=== PATIENT | male | born 1945 | race Caucasian/White ===

== ENCOUNTER 2023-02-15 10:08 | Outpatient (REF) | payer MEDICARE, SELFPAY ==
--- NOTE | ~2023-02-15 | XR_ITS ---
EXAMINATION: XR KNEE, LEFT CLINICAL INFORMATION: Pain in left knee COMPARISON: None available. TECHNIQUE: Three views of the left knee. FINDINGS: Patient is status post total knee replacement with patella resurfacing. Prosthesis is well aligned. There is no loosening or fractures seen. There is mild suprapatellar fullness on most likely due to edema less likely joint effusion. XR/XR knee LT 3V IMPRESSION: Well-positioned left knee prosthesis.
== END 2023-02-15 10:09 | disposition home or self-care (01) ==
LOC: HO.HOSX 10:08
PROVIDERS: Visit Provider Orthopaedic Surgery
DX: M25.562 Pain in left knee (principal); Z96.653 Presence of artificial knee joint, bilateral
CPT/HCPCS: 73562; 99212

== ENCOUNTER 2023-02-15 13:44 | Outpatient (AMB) | payer MEDICARE, SELFPAY ==
--- NOTE | 2023-02-15 14:00 | A.OFFVIS_ITS ---
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 Tovar. Hx of bilateral knee replacemant surgeries. He denies any fevers or chills. He states that he did aggravated his left knee several weeks ago when he tripped over a tomato cage while he was walking in the [place]. He denies any other injuries. He does not take any medicines for his discomfort. He denies any locking or giving way. He has been wearing an ankle weight on his left ankle to increases his strength. Allergies Tetanus Vaccines and Toxoid [TETANUS] Allergy (Unknown, Unverified 02/15/23 14:12) SWELLING Medication List - Last Reconciled 02/15/23 by Raghu Tovar MD No Known Home Meds [facility] Social History (Updated 02/15/23 @ 14:13 by Raquel Contreras [facility]) Current occupational status: retired Physical Exam Const Other: Well-nourished well-developed very friendly male awake alert and oriented x3 in no acute distress Extrem Other: Bilateral lower extremity examination shows good capillary refill, no skin lesions noted, normal sensation light touch Left knee examination shows that the surgical incision is well healed, no erythema, full active extension and flexion to 125 degrees, his patella tracks well, mild tenderness to palpation over his tibial tubercle, no overlying skin lesions Results Reviewed Results Reviewed: X-rays of the patient's left knee taken today show a total knee arthroplasty in good position with no signs of loosening, no acute bony abnormalities Assessment & Plan Assessment & Plan (1) Left knee pain: Code(s): M25.562 - Pain in left knee Plan Mr. Yañez is doing well after undergoing left total knee replacement surgery in spite of his recent fall. He does not appear to have damaged his total knee arthroplasty. He does have mild discomfort most likely due to bony and soft tissue contusion. Activity modifications were discussed at length with the patient. He will contact me prior to his annual follow-up appointment for his right total knee arthroplasty in April should any questions or concerns arise. Feel free to call me at any time should questions regarding his orthopedic management arise. I spent 22 minutes in reviewing the patient's records and imaging studies, seeing the patient and documenting in the medical record. Orders: Orders XR knee LT 3V Today M25.562 - Pain in left knee Coding Level of Care Code Est Pt Level 2 (97368) Diagnoses Left knee pain M25.562
== END 2023-02-15 14:45 | disposition home or self-care (01) ==
PROVIDERS: PCP Family Medicine; Visit Provider Orthopaedic Surgery
DX: M25.562 Pain in left knee (principal)
CPT/HCPCS: 99212

== ENCOUNTER 2023-04-19 14:19 | Outpatient (AMB) | payer MEDICARE, SELFPAY ==
--- NOTE | 2023-04-19 14:42 | MHC.OFFVIS ---
Intake Vital Signs 04/19/23 14:47 Height 6 ft Weight 173 lb BMI 23.5 Intake Visit Reasons: OV-Right knee follow up Intake Note: Abilio reyes 77 year old male presents today for an evaluation of right knee s/p TKA. Patient reports he is doing well, stating no concerns today. He reports mild intermittent discomfort in his right knee. He denies any fevers or chills. He denies any locking or giving way. Allergies Tetanus Vaccines and Toxoid [TETANUS] Allergy (Unknown, Unverified 02/15/23 14:12) SWELLING Medication List - Last Reconciled 04/20/23 by Raghu Tovar MD amiodarone 200 mg PO DAILY aspirin 81 mg PO BID atorvastatin 40 mg PO DAILY carvedilol 25 mg PO BID furosemide 40 mg PO BID isosorbide mononitrate ER 30 mg PO DAILY sacubitril-valsartan 49-51 mg (Entresto) 1 tab PO BID [facility] Surgical History (Updated 04/19/23 @ 14:55 by JOE Carranza) History of total bilateral knee replacement Social History (Updated 04/19/23 @ 14:48 by JOE Carranza) Patient Tobacco Use Status: Never used Tobacco Current occupational status: retired Physical Exam Vital Signs: BMI result Body Mass Index 23.5 Const Other: Well-nourished well-developed very friendly male awake alert and oriented x3 in no acute distress Extrem Other: Bilateral lower extremity examination shows good capillary refill, no skin lesions noted, normal sensation light touch Right knee examination shows that the surgical incision is well healed, no erythema, full active extension and flexion to 125 degrees, his patella tracks well Results Reviewed Results Reviewed: X-rays of the patient's right knee taken today show a total knee arthroplasty in good position with no signs of loosening, no acute bony abnormalities Assessment & Plan Assessment & Plan (1) Right knee pain: Code(s): M25.561 - Pain in right knee Plan Mr. Yañez continues to do very well after undergoing right total knee replacement surgery. He will continue with his home exercise program. 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 He will contact me prior to his annual follow-up appointment should any questions or concerns arise. Feel free to call me at any time should questions regarding his orthopedic management arise. I spent 20 minutes in reviewing the patient's records and imaging studies, seeing the patient and documenting in the medical record. Orders: Orders XR knee RT 3V 04/19/23 M25.561 - Pain in right knee Coding Level of Care Code Est Pt Level 2 (94900) Diagnoses Right knee pain M25.561
[2023-04-19 14:47] VITALS: BMI 23.5
== END 2023-04-19 15:16 | disposition home or self-care (01) ==
PROVIDERS: PCP Family Medicine; Visit Provider Orthopaedic Surgery
DX: Z47.1 Aftercare following joint replacement surgery (principal); Z96.651 Presence of right artificial knee joint
CPT/HCPCS: 99213

== ENCOUNTER 2023-04-19 14:19 | Outpatient (REF) | payer MEDICARE, SELFPAY | END 2023-04-19 14:20 | disposition home or self-care (01) | LOC: HO.HOSX 14:19 | PROVIDERS: PCP Family Medicine; Visit Provider Orthopaedic Surgery | DX: M25.561 Pain in right knee (principal); Z79.899 Other long term (current) drug therapy | CPT/HCPCS: 73562; 99212 ==

== ENCOUNTER 2023-08-18 13:09 | Outpatient (AMB) | payer MEDICARE, SELFPAY ==
[2023-08-18 13:21] VITALS: BMI 23.5
--- NOTE | 2023-08-18 13:21 | A.OFFVIS_ITS ---
Vital Signs 08/18/23 13:21 Height 6 ft Weight 173 lb BMI 23.5 Intake Visit Reasons: Bilateral knee pain Intake Note: Abilio is a 77 year old male who presents for a follow up after undergoing bilateral total knee replacement surgeries in the past. The patient reports minimal discomfort in both of his knees. He continues with his home exercise program. The patient states that several weeks ago his right knee did ?buckle? when he was going down the stairs. The patient did not fall. He states that he has had no similar episodes since that time. He does not take any medicines for his discomfort. Allergies Tetanus Vaccines and Toxoid [TETANUS] Allergy (Unknown, Verified 08/18/23 13:34) SWELLING Medication List - Last Reconciled 08/19/23 by Raghu Tovar MD amiodarone 200 mg PO DAILY aspirin 81 mg PO BID atorvastatin 40 mg PO DAILY carvedilol 25 mg PO BID furosemide 40 mg PO BID isosorbide mononitrate ER 30 mg PO DAILY sacubitril-valsartan 49-51 mg (Entresto) 1 tab PO BID [facility] Surgical History History of total bilateral knee replacement Social History Patient Tobacco Use Status: Never used Tobacco Current occupational status: retired Physical Exam Vital Signs: BMI result Body Mass Index 23.5 Const Other: Well-nourished well-developed very friendly male awake alert and oriented x3 in no acute distress Extrem Other: Bilateral lower extremity examination shows good capillary refill, no skin lesions noted, normal sensation light touch Bilateral knee examination shows that the surgical incisions are well healed, no erythema, full active extension and flexion to 120 degrees, his patellae track well, no instability Assessment & Plan Assessment & Plan (1) Pain in both knees: Code(s): M25.561 - Pain in right knee; M25.562 - Pain in left knee Plan Mr. Yañez continues to do well after undergoing bilateral total knee replacement surgeries. The patient did have a recent episode of instability most likely due to muscle weakness and subtle subluxation of his patella. The patient will continued to monitor his knee for further episodes. He will contact me prior to his follow-up appointment in 6 months should he experience any more difficulty. Feel free to call me at any time should questions regarding his orthopedic management arise. I spent 19 minutes in reviewing the patient's records and imaging studies, seeing the patient and documenting in the medical record.
== END 2023-08-18 14:05 | disposition home or self-care (01) ==
PROVIDERS: PCP Family Medicine; Visit Provider Orthopaedic Surgery
DX: M25.561 Pain in right knee (principal); M25.562 Pain in left knee
CPT/HCPCS: 99212

== ENCOUNTER → 2023-08-18 13:09 | Outpatient (BNVA) | payer MEDICARE, SELFPAY | PROVIDERS: PCP Family Medicine; Visit Provider Orthopaedic Surgery | DX: M25.561 Pain in right knee (principal); M25.562 Pain in left knee; Z96.653 Presence of artificial knee joint, bilateral | CPT/HCPCS: 99212 ==

== ENCOUNTER 2025-03-18 09:10 | Outpatient (REF) | payer MEDICARE, SELFPAY ==
--- NOTE | ~2025-03-18 | XR_ITS ---
EXAMINATION: XR HIP, LEFT CLINICAL INFORMATION: M25.552 - Pain in left hip COMPARISON: None available. TECHNIQUE: Two views of the left hip. FINDINGS: Left hip: No acute fracture, dislocation or suspicious bony lesion. Joint space is maintained. Mild lateral acetabular sclerosis, possible cysts. Metallic density projected over the femur on one of the views, likely overlying the patient. Pelvis: Right hip joint space is maintained. No acute fracture, dislocation or suspicious bony lesion.. Suspected mild right SI joint arthritis.. 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 Phleboliths in the pelvis. Vascular calcifications. XR/XR hip LT min 2V IMPRESSION: No acute findings. Mild left hip arthritis. Electronically signed by: Agus Bedolla MD 03/18/2025 03:11 PM [facility]
== END 2025-03-18 09:11 | disposition home or self-care (01) ==
LOC: HO.HOSX 09:10
PROVIDERS: Visit Provider Physician Assistant
DX: M70.62 Trochanteric bursitis, left hip (principal); M16.12 Unilateral primary osteoarthritis, left hip; Z96.653 Presence of artificial knee joint, bilateral; Z79.82 Long term (current) use of aspirin
CPT/HCPCS: 73502

== ENCOUNTER 2025-03-18 10:44 | Outpatient (AMB) | payer MEDICARE, SELFPAY ==
--- NOTE | 2025-03-18 11:06 | A.OFFVIS_ITS ---
Vital Signs 03/18/25 11:16 Height 6 ft Weight 160 lb BMI 21.7 Intake Visit Reasons: newprob-Left hip pain Intake Note: Burke is a 79 year old male who presents today as an established patient, new problem visit to evaluate his left hip pain. Patient was referred by [facility], at his visit on 01/02/25 he noted that for the past week he has been having weakness/unstable while walking. Patient has had Bilateral Knee replacement by DR in the past. At today's visit he states his pain is located at the lateral/posterior side of hip. Denies injury, stating pain came on suddenly. No numbness or tingling. He described his pain as a dull ache. Complaints of discomfort at night with sleeping at times.He mention in October he had a lumbar surgery where 2 discs were cemented by Dr. Garibay in [place]. His pain started about a month after this surgical procedure. He informed Dr. Garibay office however he was suggested to be seen at an orthopedic office. Allergies Tetanus Vaccines and Toxoid (TETANUS) Allergy (Unknown, Verified 08/18/23 13:34) SWELLING morphine Allergy (Verified 03/18/25 11:17) Hallucinations Medication List - Last Reconciled 03/18/25 by Oc Patten PA-C amiodarone 400 mg PO DAILY aspirin 81 mg PO BID atorvastatin 40 mg PO DAILY bisacodyl 10 mg HI DAILY PRN cholecalciferol (vitamin D3) 50 mcg PO DAILY dapagliflozin propanediol (Farxiga) 10 mg PO DAILY docusate sodium 100 mg PO BID fluticasone furoate-vilanterol 100-25 mcg/dose (Breo Ellipta) 1 ea inhalation DAILY furosemide 40 mg PO BID ipratropium-albuterol 20-100 mcg/actuation (Combivent Respimat) 1 puff inhalation QID isosorbide mononitrate ER 30 mg PO DAILY magnesium 250 mg PO DAILY mexiletine 150 mg PO Q12H midodrine 10 mg PO TID ondansetron 4 mg PO Q8H PRN sacubitril-valsartan 24-26 mg (Entresto) 1 tab PO BID HPI HPI newprob-Left hip pain: Details: 79-year-old gentleman presents to the office today for a left hip pain. He denies injury but he has been experiencing pain for quite a while and also experiences weakness which has caused him to fall. He ambulates with a walker. He is active at home where he goes outside to do yd work and has difficulty with walking. [facility] Surgical History (Updated 03/18/25 @ 11:16 by JOE Carranza) History of lumbar surgery History of permanent cardiac pacemaker placement History of total bilateral knee replacement Social History Patient Tobacco Use Status: Never used Tobacco Current occupational status: retired Review of Systems Const All systems reviewed & are unremarkable except as noted in HPI and below Physical Exam Vital Signs: BMI result Body Mass Index 21.7 Const General: cooperative and no acute distress Orientation/consciousness: patient oriented x3 Resp Effort & Inspection: normal respiratory effort and able to speak in complete sentences Cardio Peripheral pulses: Peripheral pulses 2+ throughout Neuro General: patient oriented x3 Extrem Other: Left hip normal to inspection. No pain with ROM of the hip. Pain along the greater trochanter. No pain with hip flexion or abduction.There is tenderness along the si joint, Negative SLR. NVI. Results Reviewed Results Reviewed: X-rays of the left hip obtained in the office today and reviewed by me show mild arthritic changes Assessment & Plan Assessment & Plan (1) Trochanteric bursitis, left hip: Code(s): M70.62 - Trochanteric bursitis, left hip Category: Medical (2) Osteoarthritis of left hip: Code(s): M16.12 - Unilateral primary osteoarthritis, left hip Category: Medical Plan We discussed options today which includes physical therapy to work on strength and conditioning exercises. At this time he did opt for home exercises which I did provide him with in the office. I also sent a prescription for Celebrex to the pharmacy to take twice a day for 2 weeks. He can then take occasionally for flare-ups. If symptoms persist or worsen we did discuss the role of steroid injections. Patient will see me back as needed. Orders: Orders XR hip LT min 2V Today M25.552 - Pain in left hip Medications: New celecoxib (Celebrex) 200 mg PO BID 60 caps 3RF 30 days Coding Level of Care Code New Pt Level 3 (95785) Complex EM visit Add On G2211 Diagnoses Trochanteric bursitis, left hip M70.62 Osteoarthritis of left hip M16.12
[2025-03-18 11:16] VITALS: BMI 21.7
--- OUTSIDE RECORDS SUMMARY | 2025-03-18 22:12 | XMS_ITS | Data Portability ---
Author Organization [employer] [facility], [employer] [facility] Address [address] [place] [id number] Care Team Providers Care Manager Women Name Role Phone MAYANK NAVARRO Primary Care Provider [phone] [facility] [[email or web address]] CARE TEAM Referring Provider [phone] Assessment Encounter Date Assessment Date Assessment LastModified by Organization Details LastModified Time 06/23/2024 06/23/2024 I have reviewed and agree with the assessment and plan as documented by the program analyst. I provided real-time medical direction for this encounter and was immediately available to provide additional phone-based assistance as needed. History as noted in EMR and by program analyst. I would add / emphasize: Patient seen after he was found to be hypotensive by [facility] with report that he was also appearing short of breath VNA encouraged activated 912 however patient and declined this as he does not wish to represent to the hospital having recently been admitted for COPD exacerbation. On arrival patient denies acute complaints stating that his breathing is back at baseline (per his report pursed lip breathing and wheezing with his history of COPD at baseline). He is normotensive. Oxygen saturation predominantly in the mid 90s and lung sounds improving with home albuterol usage. Given seemingly baseline clinical status, resolution of hypotension, lack of acute medical complaints, and desire to remain at home seems reasonable for patient to continue current regimen of bronchodilators and follow-up with his care team. Of note patient also reports that he has been having darker urine recently and UA checked which was unremarkable. Advised close follow-up with his PCP which patient voices understanding for and discussed red flags that should prompt ED evaluation including worsening shortness of breath malaise lightheadedness passing out or chest pain. Patient voices understanding. pallfather Not available 06/24/2024 09:07:09 Plan of Treatment Reminders Order Date Submit Date Provider Last Modified By Organization Details Last Modified Time Details Appointments None recorded. Lab urinalysis, dipstick [address], [id number] 5 18:57:17 rapid SARS CoV 2 Ag, QL IA, respiratory specimen [address], [address] [place] [address] 5 14:35:38 rapid flu (A+B) [address], [address] [place] [address] 5 14:35:38 Referral None recorded. Procedures None recorded. Surgeries None recorded. Imaging electrocard iogram [address], [address] [place] [address] 5 05:01:57 Medication Orders None recorded. Patient TargetsNo targets recorded. Patient InstructionsNo instructions recorded. Reason for Referral None Reported. Results Created Date Observation Date Name Description Value Unit Range Abnormal Flag Note LastModifiedBy Organization Detail LastModifiedTime 06/23/1906/23/2024 elect terence davilagr am No observ ation record ed. [email or web address] [address], [address] [place] [address] 06/23/2024 18:57:03 Result Notes None recorded. Medical Equipment None Reported. Allergies No known drug allergies Medications Name Sig Start Date Stop Date Status Note LastModified by Organization Details LastModified Time furosemide 40 mg tablet TAKE 1 TABLET BY MOUTH TWICE A DAY active Not Available Not Available No t Available atorvastatin 40 mg tablet TAKE 1 TABLET BY MOUTH EVERY DAY active Not Available Not Available No t Available carvedilol 25 mg tablet TAKE 1 TABLET BY MOUTH TWICE A DAY WITH MEALS active Not Available Not Available No t Available prednisone 10 mg tablet PLEASE SEE ATTACHED FOR DETAILED DIRECTIONS active Not Available Not Available N ot Available torsemide 20 mg tablet PLEASE SEE ATTACHED FOR DETAILED DIRECTIONS active Not Available Not Available N ot Available amiodarone 200 mg tablet TAKE 1 TABLET BY MOUTH EVERY DAY active Not Available Not Available No t Available prednisone 20 mg tablet TAKE 2 TABLETS BY MOUTH DAILY FOR 3 DAYS active Not Available Not Available N ot Available isosorbide mononitrate ER 30 mg tablet,exten ded release 24 hr TAKE 1 TABLET BY MOUTH EVERY DAY active Not Available Not Available No t Available doxycycline monohydrate 100 mg tablet TAKE 1 TABLET BY MOUTH TWICE A DAY FOR 5 DAYS active Not Available Not Available No t Available acetaminophe n 500 mg tablet TAKE 2 TABLETS BY MOUTH EVERY 8 HOURS active Not Available Not Available No t Available methocarbamo l 750 mg tablet TAKE 1 TABLET BY MOUTH THREE TIMES DAILY NEEDED FOR SPASMS active Not Available Not Available N ot Available furosemide 80 mg tablet TAKE 1 TABLET BY MOUTH TWICE A DAY active Not Available Not Available No t Available oseltamivir 75 mg capsule TAKE 1 CAPSULE BY MOUTH EVERY 12 HOURS active Not Available Not Available No t Available albuterol sulfate HFA 90 mcg/actuatio n aerosol inhaler TAKE 2 PUFFS BY MOUTH 4 TIMES A DAY NEEDED active Not Available Not Available No t Available doxycycline hyclate 100 mg tablet TAKE 1 TABLET BY MOUTH TWICE A DAY FOR 3 DAYS active Not Available Not Available No t Available Klor-Con M20 mEq tablet,exten ded release TAKE 1 TABLET BY MOUTH 5 TIMES A WEEK active Not Available Not Available No t Available Combivent Respimat 20 mcg-100 mcg/actuatio n solution for inhalation INHALE 1 PUFF BY MOUTH 4 TIMES A DAY active Not Available Not Available Not Available Breo Ellipta 100 mcg-25 mcg/dose powder for inhalation INHALE 1 PUFF INTO THE LUNGS DAILY FOR 30 DAYS. active Not Available Not Available No t Available potassium chloride ER 20 mEq tablet,exten ded release TAKE 1 TABLET BY MOUTH EVERY DAY active Not Available Not Available No t Available Jardiance 10 mg tablet TAKE 1 TABLET BY MOUTH EVERY DAY active Not Available Not Available No t Available Entresto 97 mg-103 mg tablet TAKE 1/2 TABLET BY MOUTH EVERY 12 HOURS active Not Available Not Available No t Available Entresto 49 mg-51 mg tablet TAKE ONE TABLET (49-51 MG) BY MOUTH EVERY 12 HOURS. active Not Available Not Available No t Available Vitals Date Recorded Heart rate Oxygen saturation Oxygen saturation in Arterial blood by Pulse oximetry Body height Body weight Respiratory rate Body temperature Systolic And Diastolic Provider Name and Address Organization Details Last Updated DateTime 5 70 /min 97 % 97 % 182.88 cm 87726.6 g 16 /min 101.1 [degF] 117/71 mm[Hg] Not Available [employer] [facility] production 14:15:26 Date Recorded Oxygen saturation Oxygen saturation in Arterial blood by Pulse oximetry Heart rate Body weight Respiratory rate Body temperature Body height Heart rate Systolic And Diastolic Systolic And Diastolic Provider Name and Address Organization Details Last Updated DateTime 90 % 90 % 95 /min 91353.4 56 g 20 /min 98 [degF] 182.88 cm 102 /min 108/72 mm[Hg] 109/73 mm[Hg] Not Available [employer] [facility] [employer] 16:32:41 Social History None recorded. Functional Status None recorded. Mental Status None recorded. Family History Nothing Reported. Medical History No medical history recorded. Past Encounters Encounter ID Performer Location Encounter Start Date Encounter Closed Date Diagnosis/Indication Diagnosis SNOMED-CT Code Diagnosis ICD10 Code Diagnosis IMO Codes Diagnosis Note [id number] Ariel Bojorquez MD Main - [address] [address] 09/25/2023 18:04:56 05/22/2024 00:06:09 Congestive heart failure 12471981 I50.9 This 77-year-ol d male with CHF takes torsemide 40 mg daily. For several days he has had increased dyspnea and abdominal swelling. I ordered Lasix 40 mg IV now. He will follow-up with his regular physicians . The patient agreed with this plan. [id number] Sherrie Zaman MD [facility] - [address] [address] 06/04/2024 14:15:23 06/05/2024 20:23:54 Cough [id number] R05.9 Evaluation in the field was performed by my program analyst colleague, as noted above, I provided real-time direction and supervisio n for this visit. 78yo M PMHx CHF, lung CA s/p 5 treatments of XRT p/w 1 week cough, chills. Denies rhinorrhea , sinus pain, sore throat, ear pain, other new symptoms. mild dyspnea, worse with exertion, denies peripheral edema, orthopnea. On program analyst eval VS sat 97% with rest and desat briefly to 89% with ambulation , temp 101.1F. Sock Examiner exam no resp distress, moderate air movement but sounds tight w/o wheezes or rhonchi. POC COVID and flu negative. Overall suspect radiation pneumoniti s vs less likely bacterial or viral PNA, unlikely PE given chronicity and fever w/o tachycardi a. Brief desat with ambulation not requiring ED eval, but if progressiv e may require supplement al O2. Does require CXR and if no e/o acute infection likely treat with steroids, however radiation oncologist should be consulted about this decision. Instructed pt to call radiation oncology and PCP offices to request CXR and in person eval to discussion steroids if CXR non-infect ious. [facility]ed if [facility] cannot do this would recommend ED. Red flags reviewed. PCP: Please arrange for CXR ANA and discuss steroids for ?radiation pneumoniti s w/ radiation oncologist We discussed the diagnostic uncertaint y of home visits and the risk associated with this. In this case, the patient and I felt this to be an acceptable and reasonable amount of risk given the benefit of avoiding an ED visit. We discussed the need to seek care urgently/e mergently in the setting of any new or worsening serious symptoms, shortness of breath, cough, chest pain, fever. [id number] Norman Wright MD Main - [address] [address] 06/23/2024 16:32:31 06/24/2024 12:04:45 Malaise [id number] R53.81 Health Concerns Section Related Observation LastModified by Organization Detai ls LastModified Time None Recorded Concern Status LastModified by Organization Details LastModified Time None Recorded Advance Directives Directive None Recorded Payers Insurance Date Sequence Insurance Name Policy Number Policy Nuno Covered Member ID Nuno Member ID Guarantor Name 06/23/2024 1 [facility] - MEDICARE PREFERRED (MEDICARE REPLACEMENT HMO) SAY Yañez [id number] 1 Abilio Yañez Notes Date Note Type Note Provider Name and Address Organization Details Recorded Time 09/25/2023 text/html ROS as noted in the HPI [facility] Nurse Triage Notes (Awilda Collins): Chief Complaints: Shortness of Breath/Dyspnea, CHF PMH: CHF, COPD/Asthma, Other Comments: Spouse calling for patient with increased shortness of breath over the last 2 days. Gained 4 lbs since yesterday. Increased abdominal swelling. Denies chest pain. Able to speak full sentences without labored breathing. Taking Torsemide 20mg BID. Ariel Bojorquez MD [address] [facility],[address], [place], [address], [email or web address] 09/25/2023 18:08:33 06/04/2024 text/html [facility] Nurse Triage Notes (Mario Kimble - RN): Denies: Increased work of breathing/labored with or without fever Unable to speak in full sentences without distress Discoloration of skin -cyanosis Needs to sleep sitting up, can t catch breath Shortness of breath in setting of confusion Chief Complaints: Breathing problems, Cough PMH: Congestive Heart Failure, COPD/Asthma, Cancer PMH Reviewed at 06/04/2024 Allergies Reviewed at 06/04/2024: Comments: Boiler Tender verified the patient's name//address and phone number. Pt reporting cough and feeling short winded . Pt reports hx of five radiation treatments recently for lung cancer. Pt also reporting feeling more fatigued then normal. Pt reports chills and shivering with low grade temperature of 99F. Pt also reports he has been losing weight for the last week and does not have any appetite or taste. Pt reports weight was 178-180lb, but states down to 175lb. Pt reports (-) home COVID test. Pt reports SOB worse with exertion; pt speaking in full, complete sentences at time of call. Education provided on the response time and the patient was advised to monitor reported s/s and seek emergency treatment if needed -Federcia Kimble RNink jet operator: Irish Irby, PCP: Dr. Mayank Navarro Sock Examiner Organization Information for Ankit Castaneda [employer] Name: [employer] Address: [address] [place] [address], Babbitter: Joe Conte MD CLIA No.: [id number] Sock Examiner POC Test Results from Ankit Castaneda Rapid COVID antigen (14:13:04) COVID: - Rapid influenza antigen (14:13:05) Flu: - .................... .................... .................... .................... .................... .................... .................... . Sock Examiner Note From Ankit Castaneda: [facility] makes pt contact a 78 yo M CC of SOB / Fever. [facility] obtains pt consent and uploads electronically. [facility] obtains vital signs and pt tests negative for covid and flu. PT on May 09 finished his radiation therapy for a spot of lung cancer they found. PT roughly two weeks developed chills and fever. PT is also having exertional oxygen saturation decreases. PT after resting begins to achieve better oxygen saturations. PT denies chest pain, n/v, but does have appetite loss. PT has lost roughly 4 lbs in the past two weeks. PT is not on home oxygen. PT is to be seen soon for follow up after the last radiation treatment. PT has a intermittent cough that sometimes produces clear mucus. Lungs sound clear but have decreased volume during auscultation. PT has no lower edema and has a normal amount of abdominal fluid retention. [facility] contacts [facility] and explains above mentioned. [facility] suggest pt may be experiencing radiation pneumonitis since pts s/s appear to be isolated and expected from radiation therapy. PT is advised to contact PCP or oncology to have a follow up chest x ray to rule out pneumonia and possibly get steroids to reduce the inflammation. It is explained that [facility] unfortunately doesn't have the means to do a chest x ray at home. PT understands and begins calling PCP and oncology. PT is advised that if his sp02 drops to 90s and is sustained that he should go to the emergency department for a full work up. At rest pt has greater than 96% oxygen. PT is advised to take Tylenol to reduce the fever which may improve symptoms in the mean time. PT is advised to call 911 if chest pain, severe sob, or the fever becomes uncontrollable with Tylenol. Otherwise follow up with PCP and oncology. PT understands. [facility] clear. pt allergy to tetanus shots. .................... .................... .................... .................... .................... .................... .................... . [facility] Consulted: Sherrie Zaman .................... .................... .................... .................... .................... .................... .................... . Disposition: Fulfilled Sherrie Zaman MD [address] [place] [address],[address], [place], [address], [employer] 06/04/2024 15:28:29 06/23/2024 text/html [facility] Nurse Triage Notes (Angelia Bay - RN): Reason For Request: Patients BP 71/54, Short of breath, and 02 sats was around 90.. Wants checked out. Patient Reports: CHF history, increased swelling and edema Denies: Active Chest pain, radiates to neck jaw and or arm Diaphoretic/Sweating Describes as c rushing Shortness of Breath Palpitations, feeling dizzy Chest pain, increased fatigue Chief Complaints: Hypotension PMH: Congestive Heart Failure, COPD/Asthma, Cancer, Chronic Obstructive Pulmonary Disease (COPD) PMH Reviewed at 06/23/2024 - 14:04 Allergies Reviewed at 06/23/2024 - 14:04 Comments: Boiler Tender verified the name//address and phone number. PT spouse calling for BP 78/46 , 71/54 , 110 /50 , the vna checked BP and thinks it is his the BP cuff. He denies any symptoms at this time. When the bp was showing low, he was having sob. no chest pain. He had a BP in the past when he was going in for sx and his BP was 80's. He takes entresto. He denies any nausea / vomiting , denies any dizziness. He was recently in the hospital on / Tuesday for sob / h/o CHF. He is on Lasix, 40mg and was decreased to 20 mg after d/c.. He has been eating and drinking without difficulty . PMH CANCER > 12/08/09 radiation treatment for lung cancer Education provided on the response time and the Patient was advised to monitor reported s/s and seek emergency treatment if needed Sock Examiner Organization Information for Leon Martinez [employer] Name: [employer] Address: [address] [place] [address], Babbitter: Joe Conte MD [facility] No.: [id number] Sock Examiner POC Test Results from Leon Martinez [employer] JODIE EKG (16:23:32) EKG test performed. Attachments uploaded as part of this test result can be found under Documents section. Urine Dipstick (16:52:24) Urine leukocytes: - LEXY Urine nitrites: - NIT Urine urobilinogen: 1 URO Urine protein: 15+-0.15 PRO Urine pH: 5.0 pH Urine blood: - BLO Urine specific gravity: 1.015 SG Urine ketones: - KET Urine bilirubin: - DANNY Urine glucose: - GLU Attachments uploaded as part of this test result can be found under Documents section. .................... .................... .................... .................... .................... .................... .................... . Sock Examiner Note From Leon Martinez: [facility] makes pt contact. He is seen through the screen door washing his hands at the kitchen sink while seated on a bar stool. He turns and waves [facility] in the door. He is noted to be breathing at a mildly accelerated rate and is purse-lipped breathing, but does not appear to be in acute distress. His skin is w/p/d, no facial droop or one-sided weakness are observed, and he is not bleeding anywhere. Pt's enters the kitchen to help provide Pmhx. It is reported to [facility] the pt had a visit from a vna this morning who took his bp right before she left because the pt seemed to have a sudden onset sob and wasn't looking too good . She found him to be hypotensive w/ two separate readings of 70s systolic. A was concerned and encouraged pt and to call 911. Pt and elected to call for [facility] visit first. He spent 6 days admitted to the hospital for COPD exacerbation about 2 weeks ago and had a return visit to the ED last week for my equilibrium was off . He denies any cp, n/v/d, or fevers, but does endorse mild sob and some chills. Pt also endorses darker than normal urine since having a [place] in hospital. He denies itching, burning, or painful urination and no back or abdominal discomfort. His pursed-lip breathing is baseline, according to the pt. He has several inhalers including a combivent, an albuterol, and two steroid inhalers. He has not been using his albuterol or combivent inhalers. [facility] obtains vital signs and pt is assessed. Lung sounds are diffuse wheezing throughout. He is not using accessory muscles to breathe. Initial RA SpO2 is at 90%, but it climbs to 94% as pt's respiratory rate drops. Orthostatic vitals are obtained and he is negative. A 12-lead EKG is obtained and pt is in a paced rhythm. Pt is able to provide a urine sample for urine dip stick test. [facility] contacts [facility] and discusses the above. [facility] will recommend a home nebulizer to pt's primary care team and is comfortable leaving the pt at home at this time since his breathing has come back to baseline and he has no other complaints. [facility] informs pt and of red flags s/s and provides instruction on proper use of all inhalers. Pt uses albuterol inhaler in [facility] presence and his lung sounds improve. It is recommended he use it every 4 hours as he needs it. [facility] ensures no further questions or concerns and pt and thank [facility] for coming. [facility] is clear. Report completed by ALAINA Martinez [id number]. .................... .................... .................... .................... .................... .................... .................... . [facility] Consulted: Norman Wright .................... .................... .................... .................... .................... .................... .................... . Disposition: Fulfilled Norman Wright MD [address] [facility],[address], [place], [address], [employer] - JUANCARLOS GOLDEN 06/24/2024 09:07:19
--- OUTSIDE RECORDS SUMMARY | 2025-03-18 22:12 | XMS_ITS | Data Portability ---
Author Organization [place] [facility] Rita Nunez AONE [place] Address [address] [place] [address] Care Team Providers Care Student Name Role Phone JENNIFER TREJO Primary Care Provider [phone] Assessment Encounter Date Assessment Date Assessment LastModified by Organization Details LastModified Time 08/18/2022 08/18/2022 This is a pleasant 76-year-old male status post left total knee arthroplasty with Dr. Tovar on August 02, 2022 who is doing well clinically. He is currently on hold for his warfarin due to elevated INR as he has been instructed not to take his Coumadin. We are watching his numbers trend down for which his level was 4.23 at today's visit. Once he hits 2 we will transition him over to 81 mg baby aspirin twice daily for the remainder of time which will be approximately 6 weeks. He has physical therapy coming to his house tomorrow in which they will check his INR he has a repeat lab scheduled for here at [facility] on Tuesday as well. He is currently managing his pain quite well he is not requesting for any refills of his narcotic pain medication. He will continue with the below noted protocol. Would like him to see Dr. 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 Postop total knee arthroplasty protocol 1. DVT prophylaxis Coumadin hold until INR of 2.0 and then transition over to 81 mg baby aspirin twice daily for 6 weeks. 2. Continuation of home exercises and physical therapy with fall precautions. The patient is to use ancillary assistive devices to prevent falls. 3. Antibiotic prophylaxis prior to dental work was issued sent off to the patient's pharmacy the rationale behind this was discussed in detail the patient is to refrain from any dental work elicits emergent for 3 months from the time of surgery. 4. Narcotic pain medication will be issued on an as-needed basis. 5. The patient is not to drive until totally off narcotics. 6. The patient can shower in 48 hours however no tub baths or swimming until completely healed. 7. Postop x-rays were reviewed in great detail with the patient. 8. We will see the patient back in 6 weeks time for repeat clinical exam all questions were answered at today's visit the patient is encouraged to call if they have any additional questions or concerns. The patient is in agreement with the above-noted plan. Not available 08/18/2022 12:51:22 11/29/2022 11/29/2022 HPI : Patient is here for 4 month(s) follow-up for a LEFT total knee replacement. P atient reports good pain relief in the knee and satisfactory synagogue of function in terms of activities of daily living. Current condition is improved relative to their pre operative condition. They have not encountered any major problems since their last office visit. He reports a feeling of fullness in the popliteal recess of the left knee. He reports on rare occasion some discomfort that radiates across the anterior aspect of the joint. Overall he is very pleased with his progress. He reports that he has been able to get up off of the floor. He reports that he had a fall off of a milk crate but did not hurt himself and again was able to get up off the ground independently. Physical Exam : He has a mild persistent effusion and likely popliteal cyst. Negative calf tenderness and negative Homans' sign. Patient is well nourished, well-developed, in no acute distress, with appropriate mood and affect. The patient is oriented to time, place, and person. Respirations are even and unlabored. The affected limb is well-perfused, with well healed skin incision. The patient demonstrates good knee motion, stability, and strength. The knee moves from 0-150 degrees. Muscle strength is normal. Pedal pulses are palpable. Assessment/Plan : This patient is functioning well after total knee arthroplasty. Continue knee conditioning exercises. Jiko-[id number] medications as needed. The patient understands that ultimate failure may occur due to mechanical wear, loosening or breakage. Follow-up at one year post-op is recommended to assess for the possibility of failure. Follow up sooner with any problems. A total of 26 minutes were spent reviewing previous charting, obtaining history and physical exam, and reviewing treatment plan. Not available 11/29/2022 09:04:20 Plan of Treatment Reminders Order Date Submit Date Provider Last Modified By Organization Details Last Modified Time Details Appointments None record ed. Lab None record ed. Referral None record ed. Procedures None record ed. Surgeries None record ed. Imaging XR, knee, 3 view 023 11/30/19 [email or web address] [facility], [address], [address], [place], [address], 3 09:13:54 XR, knee, 1 or 2 view 023 08/19/19 [email or web address] [facility], [address], [place], [address], 3 12:18:42 Medication Orders None record ed. Patient TargetsNo targets recorded. Patient Instructions Encounter Date Encounter Id Patient Instructions Last Modified By Organization Details Last Modified Time 08/18/2022 [id number] Well-seated well-positioned left total knee arthroplasty without sign of loosening. No acute bony abnormality. Not available 08/18/2022 12:51:09 11/29/2022 [id number] Left knee X-ray series does not show any signs of implant related issues including loosening, malposition, instability, periprosthetic fracture, periosteal reaction or infection. Not available 11/29/2022 09:04:41 Reason for Referral None Reported. Results Created Date Observation Date Name Description Value Unit Range Abnormal Flag Note LastModifiedBy Organization Detail LastModifiedTime 08/21/19 imagi ng/di agnos tic resul t No observ ation record ed. [email or web address] Not Available 08/20 17:07:13 Result Notes None recorded. Problems Name Problem SNOMED Code Status Onset Date Resolution Date Notes Provider Name and Address Organization Details Recorded Time Chronic obstructi ve pulmonary disease 84917489 Active 2011 Chronic obstructiv e pulmonary disease - Overview: Overview: Chronic Obstructiv e Pulmonary Disease Not Available [facility] 5 00:22:44 Simple chronic bronchiti s 42372375 Active 2017 Simple chronic bronchitis Not Available [facility] 5 00:22:44 Macrocyto sis - no anemia 505336086 Active 2017 Macrocytos is without anemia Not Available [facility] 5 00:22:44 Internati onal normalize d ratio above reference range 945293328 Active 2022 BREANA FORMAN PA-C [address] [facility],[address], [place], [address] , [place] [facility] 3 13:10:16 Problem Notes None recorded. Medical Equipment None Reported. Allergies Allergen ID Allergen Name Allergen Category Reaction Reaction Severity Criticality Documentation Date Start Date Code Code System Note Provider Name and Address Organization Details Recorded Time 2585 Vaccine product containin g only Clostridi um tetani antigen (medicina l product) medicatio n Not available Not available Not available 08/18/2022 83067 2002 SNOMED Coral Marie [facility], [place] - [facility] 3 09:21:54 95810 Tetanus toxoid adsorbed Not available Not available Not available Not available 01/22/20252017 79256 RxNorm Not Available [facility] 5 01:25:44 Medications Name Sig Start Date Stop Date Status Note LastModified by Organization Details LastModified Time furosemide 40 mg tablet TAKE 1 TABLET BY MOUTH TWICE DAILY active Not Available Not Available No t Available atorvastati n 40 mg tablet TAKE 1 TABLET BY MOUTH DAILY active Not Available Not Available No t Available carvedilol 25 mg tablet TAKE 1 AND 1/2 TABLETS BY MOUTH TWICE DAILY active Not Available Not Available No t Available prednisone 10 mg tablet TAKE 4 TABLETS BY MOUTH EVERY DAY FOR 2 DAYS THEN DECREASE BY 1 TABLET BY MOUTH EVERY 2 DAYS UNTIL COMPLETE 11/29 completed Not Available Not Available Not Available carvedilol 12.5 mg tablet TAKE 1 TABLET BY MOUTH EVERY 12 HOURS WITH FOOD active Not Available Not Available No t Available amiodarone 200 mg tablet TAKE 1 TABLET BY MOUTH DAILY active Not Available Not Available No t Available benzonatate 200 mg capsule TAKE 1 CAPSULE BY MOUTH THREE TIMES DAILY FOR 5 DAYS 11/29 completed Not Available Not Available Not Available prednisone 20 mg tablet Take 1 tablet every day by oral route for 5 days. 11/29 completed Not Available Not Available Not Available isosorbide mononitrate ER 30 mg tablet,exte nded release 24 hr TAKE 1 TABLET BY MOUTH DAILY active Not Available Not Available No t Available cyanocobala min (vit B-12) 1,000 mcg tablet TAKE 1 TABLET BY MOUTH EVERY DAY active Not Available Not Available No t Available acetaminoph en 300 mg-codeine 30 mg tablet Take 1 tablet by mouth every 4 (four) hours as needed for pain. 04/17 completed Not Available Not Available Not Available aspirin 81 mg tablet,danny yed release Take 1 tablet (81 mg total) by mouth 2 (two) times a day. active Not Available Not Available No t Available acetaminoph en 500 mg tablet TAKE 2 TABLETS BY MOUTH EVERY 8 HOURS active Not Available Not Available No t Available spironolact one 25 mg tablet Take 0.5 tablets (12.5 mg total) by mouth. 2021 active Not Available Not Available Not Avai lable amoxicillin 500 mg tablet TAKE 4 TABLETS BY MOUTH 1 HOUR BEFORE DENTAL APPOINTME NT active Not Available Not Available No t Available hydromorpho ne 2 mg tablet TAKE 1 TO 2 TABLETS BY MOUTH EVERY 4 TO 6 HOURS NEEDED FOR SEVERE PAIN active Not Available Not Available No t Available methocarbam ol 750 mg tablet TAKE 1 TABLET BY MOUTH THREE TIMES DAILY NEEDED FOR SPASMS active Not Available Not Available No t Available magnesium hydroxide 400 mg/5 mL oral suspension Take by mouth daily as needed for constipat ion. active Not Available Not Available No t Available furosemide 80 mg tablet TAKE 1 TABLET BY MOUTH TWICE A DAY active Not Available Not Available No t Available pantoprazol e 40 mg tablet,danny yed release Take 1 tablet every day by oral route for 28 days. 2022 active Not Available Not Available Not Avai lable nitroglycer in 0.[address] 1 tablet (0.4 mg total) under the tongue. 2021 active Not Available Not Available Not Avai lable furosemide 20 mg tablet TK 2 TS PO QAM AND TK 1 T IN THE AFTERNOON 2019 active Not Available Not Available Not Avai lable warfarin 1 mg tablet TAKE 4 TABLETS BY MOUTH DAILY 11/29 completed Not Available Not Available Not Available methylpredn isolone 4 mg tablets in a dose pack FOLLOW PACKAGE DIRECTION S active Not Available Not Available No t Available albuterol sulfate HFA 90 mcg/actuati on aerosol inhaler 2 puffs 4 (four) times a day. 2021 active Not Available Not Available Not Avai lable doxycycline hyclate 100 mg tablet TAKE 1 TABLET BY MOUTH TWICE DAILY active Not Available Not Available No t Available amoxicillin 875 mg-potassiu m clavulanate 125 mg tablet TAKE 1 TABLET BY MOUTH TWICE DAILY FOR 10 DAYS 11/29 completed Not Available Not Available Not Available enoxaparin 40 mg/0.4 mL subcutaneou s syringe INJECT 40 MG UNDER THE SKIN EVERY DAY active Not Available Not Available No t Available Combivent Respimat 20 mcg-100 mcg/actuati on solution for inhalation INHALE 1 PUFF BY MOUTH FOUR TIMES DAILY FOR 14 DAYS active Not Available Not Available No t Available Stimulant Laxative Plus 8.6 mg-50 mg tablet TAKE 2 TABLETS BY MOUTH EVERY EVENING active Not Available Not Available No t Available potassium chloride ER 20 mEq tablet,exte nded release TK 1 T PO QD 2019 active Not Available Not Available Not Avai lable Jardiance 10 mg tablet TAKE 1 TABLET BY MOUTH EVERY DAY active Not Available Not Available No t Available Entresto 97 mg-103 mg tablet TAKE 1 TABLET BY MOUTH TWICE DAILY active Not Available Not Available No t Available Vitals Date Recorded Body height Body mass index (BMI) Body weight Provider Name and Address Organization Details Last Updated DateTime 08/18/2022 182.88 cm 25 kg/m2 56400 g Coral Marie [place] [facility] 08/18/2022 09:22:05 Date Recorded Body height Body mass index (BMI) Body weight Provider Name and Address Organization Details Last Updated DateTime 09/24/2022 182.88 cm 25 kg/m2 97053 g Vito Frank [facility] 09/24/2022 14:38:55 Social History None recorded. Functional Status Question Answer Note LastModified by Organizat ion Details LastModified Time Do you use any illicit or recreational drugs? No [email or web address] Information not available 08/18/2022 Do you or have you ever used any other forms of tobacco or nicotine? No [email or web address] Information not available 08/18/2022 What is your level of alcohol consumption? None Information not available 08/18/2022 Mental Status None recorded. Family History Nothing Reported. Medical History Condition Response Pacemaker Y Heart Attack (SD) Y Past Encounters Encounter ID Performer Location Encounter Start Date Encounter Closed Date Diagnosis/Indication Diagnosis SNOMED-CT Code Diagnosis ICD10 Code Diagnosis IMO Codes Diagnosis Note [id number] TAVO MEDINA [address] [facility] [address] [place] [address] 08/18/2022 09:13:38 08/18/2022 10:45:07 History of left total knee replacement 7667823438 216479 Z96.652 Postoperative visit 1836 17357 Z09 [id number] MD CHRISTOPHER MonteiroSC [address] [facility] [address] [place] [address] 09/24/2022 13:55:10 09/24/2022 14:54:53 Aftercare 248894142 Z47.1 [id number] TAVO BHAKTASC [address] [facility] [address] [place] [address] 11/29/2022 08:12:20 11/29/2022 09:02:10 History of left total knee replacement 4513840719 754717 Z96.652 Health Concerns Section Related Observation LastModified by Organization Detai ls LastModified Time None Recorded Concern Status LastModified by Organization Details LastModified Time None Recorded Advance Directives Directive None Recorded Payers Insurance Date Sequence Insurance Name Policy Number Policy Nuno Covered Member ID Nuno Member ID Guarantor Name 11/26/2022 1 [facility] - MEDICARE PREFERRED (MEDICARE REPLACEMENT HMO) SAY Abilioyoana Yañez [id number] 1 Abilio Yañez Notes Date Note Type Note Provider Name and Address Organization Details Recorded Time 08/18/2022 text/html The patient is here for first postop visit after undergoing left total knee arthroplasty. He is doing quite well. He denies any falls. Date of surgery: August 02, 2022 Patient states they are doing well. They (the patient ) are taking their pain medication as directed. They are currently doing their physical therapy as well as home exercise plan. They are utilizing ancillary assistive walking devices for ambulation and fall prevention. They are currently on DVT prophylaxis with Coumadin with hold due to elevated INR. Most recent INR presents today was 4.23 from [facility]. They deny fever, denies chills, denies flulike symptoms, denies cough, denies shortness of breath, deny calf pain. BREANA FORMAN PA-C [address] [facility] [address], [place], [address], [place] [facility] 08/18/2022 12:51:46 09/24/2022 text/html HPI: Patient is here for a 6 week follow-up from a left TKA. He is recovering very well. He is walking with a cane or without an assistive device. He has great motion. His pain is improving. He is happy with his progress. Physical Exam:Patient is well nourished, well- developed, in no acute distress, with appropriate mood and affect. The patient is AAOx3. The patient demonstrates good knee motion and strength. The incision is well healed. Range of motion 0 to 130 degrees today. Assessment/Plan: The patient is functioning well 6 weeks from total knee arthroplasty. Continue physical therapy as needed. Return for follow-up in 2 months with x-rays at that time. Chalo Salomon MD [address] [facility] [address], [place], [address], [place] [facility] 09/24/2022 14:53:29
== END 2025-03-18 12:07 | disposition home or self-care (01) ==
LOC: HO.HOS 10:45
PROVIDERS: PCP Family Medicine; Visit Provider Physician Assistant
DX: M70.62 Trochanteric bursitis, left hip (principal); M16.12 Unilateral primary osteoarthritis, left hip
CPT/HCPCS: 99203; G2211

== ENCOUNTER → 2025-03-18 10:46 | Outpatient (BNV) | payer MEDICARE, SELFPAY | PROVIDERS: Visit Provider Radiology Diagnostic Ultrasound | DX: M16.12 Unilateral primary osteoarthritis, left hip (principal) | CPT/HCPCS: 73502 ==